=== PATIENT | female | born 1990 | race Caucasian/White ===

== ENCOUNTER 2022-07-04 12:53 | Emergency (ER) | payer OTHER, SELFPAY ==
[2022-07-04 12:54] VITALS: BP 157/105; PULSE 73; RESP 16; TEMP 36.6; O2SAT 100; BMI 29.2
[2022-07-04 12:57] VITALS: BP 155/98; PULSE 76; RESP 18; TEMP 36.6; O2SAT 98
[2022-07-04 13:57] VITALS: BP 153/94; PULSE 79; RESP 16; TEMP 36.6; O2SAT 97
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
[2022-07-04 14:57] VITALS: BP 150/89; PULSE 81; RESP 18; TEMP 36.7; O2SAT 99
[2022-07-04 15:00] VITALS: BP 154/84; PULSE 76; RESP 16; TEMP 36.6; O2SAT 97
[2022-07-04 15:10] LABS: Internal QC Validated? YES +Cl - CLEAR BKGD; Pregnancy, Urine Negative Negative
[2022-07-04 17:06] LABS: Chlamydia Trachomatis by PCR Negative (Negative); Neisserai gonorrhoeae by PCR Negative (Negative); Probe Check PASS; Sample Adequacy Control PASS; Specimen Processing Control PASS
== END 2022-07-04 15:42 | disposition home or self-care (01) ==
PROVIDERS: Emergency Provider Emergency Medicine; PCP Family Medicine; Visit Provider Emergency Medicine
DX: N93.0 Postcoital and contact bleeding (principal); R10.2 Pelvic and perineal pain
CPT/HCPCS: 76830; 81025; 87491; 87591; 99282

== ENCOUNTER 2023-08-17 19:11 | Emergency (ER) | payer OTHER, SELFPAY ==
[2023-08-17 19:12] VITALS: BP 150/90; PULSE 125; RESP 18; TEMP 36.6; O2SAT 100; BMI 65.4
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
[2023-08-17 21:11] VITALS: PULSE 100; RESP 18; O2SAT 97
--- OUTSIDE RECORDS SUMMARY | 2023-08-17 21:17 | XMS RPT_ITS | CCD ---
Author Name Unknown Address [address] [place] [address] [address] [place] [id number] Organization [facility] Care Team Providers Care Bedspread Seamer Name Role Phone NICHOLAS GARY Attending Unavailable NICHOLAS GARY Primary Care Unavailable GEORGE OLEARY DO Attending Unavailable GEORGE OLEARY DO Primary Care Unavailable Allergies Allergy Classification Reported Allergen(s) Allergy Type Date of Onset Reaction(s) Facility (1 source) Seasonal allergy; Translations: [SEASONAL ALLERGIES] Propensity to adverse reactions (disorder) 1 [facility] Repository Results Test Name Value Interpretation Reference Range Facil ity Encounters Encounter Date Encounter Type Care Provider Facility Start: 11-17-2022 End: 11-18-2022 ambulatory GEORGE OLEARY DO Facility:B Start: 11-04-2021 End: 11-04-2021 ambulatory NICHOLAS GARY Facility:[facility] Payers Date Payer Category Payer Unknown [id number] 1990 Unknown [id number] Progress note 11-04-2021 Note Date & Type Note Facility 11-04-2021 Note HNO ID: [id number] Author: Nicholas Gary MD Service: ? Author Type: Physician Type: Progress Notes Filed: 11/04/2021 3:26 PM Note Text: Chief Complaint Patient presents with: Weight Loss HPI:This Team Access Model visit is a virtual encounter. It required patient-provider interaction for the medical decision making as documented below. Patient was offered a virtual/telemedicine appointment in lieu of an office visit due to recommendations to reduce patient exposure to COVID-19. Patient is aware of limitations of performing the visit without a face to face visit in the office setting and agrees. Pt completing virtual visit today wanting to discuss restarting Adipex. Weight - Currently weighing 208 lbs and wanting to restart Adipex. Pt last given her final prescription of Adipex on 11/10/20 and advised to f/u in 1 month. Pt never followed up despite office reaching out to schedule. Pt final weight from November recorded was 187 lbs. Pt starting weight was 195 lbs. Has been trying to get back to eating healthy. 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 Past medical history, appointments, medications, allergies reviewed. Previous Medical History PAST MEDICAL HISTORY Diagnosis Date - Chlamydia 05/2010 Treated - Decorative tattoo Left upper arm, [facility], [place], right inner wrist - Dysthymic disorder Depression (non-psychotic) - Encounter for insertion of mirena IUD 05/02/2018 - Genital herpes 03/2014 HSV type 2 Positive - Kidney infection 1995 hospitalized - LGSIL (low grade squamous intraepithelial lesion) on Pap smear 08/14/2013 - Migraine, unspecified, with intractable migraine, so stated, without mention of status migrainosus Migraine - Seasonal allergies - Suicidal attempted 02/2010 overdose of extra strength tylenol went to ER - Unspecified asthma(493.90) Asthma Unspecified - Varicella without mention of complication 1994 Chickenpox Previous Surgical History PAST SURGICAL HISTORY Procedure Laterality Date - NONE Family History FAMILY HISTORY Problem Relation Age of Onset - Asthma Maternal Grandmother - Seizures Brother Patient Allergies ALLERGIES Allergen Reactions - Seasonal Allergies Other: See Comments Sinus problems Current Medications Current Outpatient Medications on File Prior to Visit Medication Sig - fluticasone (FLOVENT) 110 mcg/actuation inhaler Inhale 1 Puff as instructed twice daily. - minocycline (MINOCIN, DYNACIN) 50 mg capsule Take 1 capsule by mouth twice daily. - acyclovir (ZOVIRAX) 400 mg tablet Take 1 tablet by mouth twice daily. - sertraline (ZOLOFT) 100 mg tablet Take 1.5 tablets by mouth once daily. - cetirizine (ZYRTEC) 10 mg tablet Take 1 tablet by mouth once daily. - albuterol HFA (PROAIR HFA) 90 mcg/actuation inhaler Inhale 2 Puffs as instructed every 6 hours as needed. - levonorgestrel (MIRENA) 20 mcg/24 hours (5 yrs) 52 mg IUD 1 Each by INTRAUTERINE route one time only. No current facility-administered medications on file prior to visit. Social History Social History Tobacco Use - Smoking status: Never Smoker - Smokeless tobacco: Never Used Substance Use Topics - Alcohol use: Yes Comment: Occasionally - Drug use: No EXAM: LMP 05/12/2018 General Appearance: Well appearing, alert, in no acute distress, well-hydrated, well nourished.. Health Maintenance List COVID-19 VACCINE(1) Never done PNEUMOCOCCAL(1 - PCV) Never done SPIROMETRY Never done DTAP,TDAP,TD(1 - Tdap) Never done PAP TESTING due on 07/12/2021 ANNUAL PCP TEAM CHRONIC DISEASE VISIT due on 11/10/2021 INFLUENZA(Season Ended) due on 02/10/2022 HEPATITIS C SCREENING Completed HIV SCREENING Completed Data reviewed None ASSESSMENT/PLAN: 1. . Acne, unspecified acne type - ICD9: 706.1, ICD10: L70.9 - MINOCYCLINE 50 MG CAPSULE 2. Depression, unspecified depression type - ICD9: 311, ICD10: F32.A - SERTRALINE 100 MG TABLET 3. ADRIANO (generalized anxiety disorder) - ICD9: 300.02, ICD10: F41.1 - SERTRALINE 100 MG TABLET 4. Mild asthma, unspecified whether complicated, unspecified whether persistent - ICD9: 493.90, ICD10: J45.909 - CETIRIZINE 10 MG TABLET 5. Obesity, Class I, BMI 30-34.9 - ICD9: 278.00, ICD10: E66.9 - PHENTERMINE 37.5 MG TABLET Follow up in 1 month Nicholas Gary MD [facility] Summary Purpose Family History No Family History Records FoundNo Family History Records Found Advance Directives No Advanced Directives Records FoundNo Advanced Directives Records Found Additional Source Comments INFORMATION SOURCE (unrecogn ized section and content) DATE CREATED AUTHOR AUTHOR'S AMAYA JOHNSON 11/23/[address] [facility] [employer] ([place]) FOR RECORDS PERTAINING TO PATIENTS WHO ARE OR HAVE BEEN ENROLLED IN A CHEMICAL DEPENDENCY/SUBSTANCEABUSE PROGRAM, SOME INFORMATION MAY BE OMITTED. This clinical summary was aggregated from multiple sources. Caution should be exercised in using it in the provision of clinical care. This summary normalizes information from multiple sources, and as a consequence, information in this document may materially change the coding, format and clinical context of patient data. In addition, data may be omitted in some cases. CLINICAL DECISIONS SHOULD BE BASED ON THE PRIMARY CLINICAL RECORDS. [facility] [employer] [facility]. provides no warranty or guarantee of the accuracy or completeness of information in this document.
[2023-08-17 22:23] VITALS: BP 150/74; PULSE 94; RESP 16; TEMP 36.8; O2SAT 97
== END 2023-08-17 22:26 | disposition home or self-care (01) ==
PROVIDERS: Emergency Provider Emergency Medicine; Visit Provider Emergency Medicine
DX: T74.11XA Adult physical abuse, confirmed, initial encounter (principal); S06.9X0A Unspecified intracranial injury without loss of consciousness, initial encounter; S02.2XXA Fracture of nasal bones, initial encounter for closed fracture; Y04.8XXA Assault by other bodily force, initial encounter
CPT/HCPCS: 70450; 70486; 99284

== ENCOUNTER 2024-02-04 18:49 | Emergency (ER) | payer MEDICAID, SELFPAY ==
[2024-02-04 18:50] VITALS: BP 150/109; PULSE 113; RESP 18; TEMP 36.4; O2SAT 100; BMI 26.3
[2024-02-04] MEDS: LORazepam 1 MG Tablet PO (19:20)
--- NOTE | 2024-02-04 19:28 | ED.RN ---
pt. crying and refusing to answer questions, stating that I do not want to be in hospital. This RN completed the assessment as best as possible.
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
[2024-02-04 20:25] LABS: Absolute Lymphocyte Count 2.79 X10^3/uL (0.83-4.51); Absolute Neutrophil Count 5.1 X10^3/uL (2.0-7.7); Basophil# 0.11 X10^3/uL; Basophil% 1.2 % (0-1); Eosinophil# 0.17 X10^3/uL; Eosinophils% 1.9 % (0-5); Hematocrit 37.6 % (37-47); Hemoglobin 12.5 g/dL (12.0-15.0); Lymphocyte # 2.79 X10^3/ul (0.83-4.51); Lymphocyte % 31.5 % (19-41); Mean Corp Hgb Conc 33.2 g/dL (32-36); Mean Corpuscular Hgb 31.1 pg (27.0-32.0); Mean Corpuscular Volume 93.5 fL (81-99); Mean Platelet Vol. 9.3 fl (6.2-12.0); Monocyte# 0.67 X10^3/uL; Monocyte% 7.6 % (0-10); NRBC Flagged by Analyzer 0 % (0-5); Neutrophil # 5.08 X10^3/uL (2.7-7.7); Neutrophil % 57.5 % (47-70); Platelet Count 304 K/mm3 (150-450); RBC Distribution Width CV 12.8 % (11.6-14.6); RBC Distribution Width SD 43.9 fl (35.1-43.9); Red Blood Count 4.02 M/mm3 (4.2-5.4); White Blood Count 8.9 K/mm3 (4.4-11.0)
[2024-02-04 20:26] LABS: POSITIVE COUNT NO; POSITIVE DIFFERENTIAL NO; POSITIVE MORPHOLOGY NO
[2024-02-04 20:35] LABS: Internal QC Validated? YES +Cl - CLEAR BKGD; Pregnancy, Serum, hCG Quali. NEGATIVE Negative
[2024-02-04 20:36] LABS: Record Kit Lot#, Serum Preg. 772476
[2024-02-04 20:38] LABS: Alcohol, Blood (Medical)-Serum < 3.0 mg/dL
[2024-02-04 20:39] LABS: Anion Gap 8 (5-15); BUN 11 mg/dL (7-18); BUN/Creat Ratio 13.4 RATIO (10-20); Chloride 107 mmol/L (98-107); Creatinine, Serum 0.82 mg/dL (0.55-1.02); EST Glomerular Filtration Rate 86 mL/min (>60); Est Glom Filt Rate - Afr Amer 104 mL/min (>60); Estimated Creatinine Clearance 120.45 ml/min; Glucose 81 mg/dL (74-106); Potassium 3.7 mmol/L (3.5-5.1); Sodium Level 140 mmol/L (136-145)
[2024-02-04 20:50] VITALS: PULSE 85; RESP 18; O2SAT 100
[2024-02-04 21:21] LABS: Amphetamine Urine VISTA NEGATIVE (<1000 ng/mL); Barbiturate Urine VISTA NEGATIVE (< 200 ng/mL); Benzodiazepine Urine VISTA NEGATIVE (< 200 ng/mL); Cocaine Urine VISTA NEGATIVE (< 300 ng/mL); Ecstacy Urine VISTA NEGATIVE (< 500 ng/mL); Methadone Urine VISTA NEGATIVE (< 300 ng/mL); PCP Urine VISTA NEGATIVE (< 25 ng/mL); THC Urine VISTA NEGATIVE (< 50 ng/mL); Vista UDS pH Range 5
[2024-02-04 22:00] VITALS: BP 130/91; RESP 18
[2024-02-04 23:14] VITALS: BP 124/81; PULSE 85; RESP 18; TEMP 36.7; O2SAT 99
[2024-02-04] MEDS: oxyCODONE 5 MG Tablet PO (23:22)
== END 2024-02-04 23:24 | disposition home or self-care (01) ==
PROVIDERS: Physician Assistant; Emergency Provider Emergency Medicine; Visit Provider Emergency Medicine
DX: S91.201A Unspecified open wound of right great toe with damage to nail, initial encounter (principal); F32.9 Major depressive disorder, single episode, unspecified; F41.9 Anxiety disorder, unspecified; J45.909 Unspecified asthma, uncomplicated; Z79.899 Other long term (current) drug therapy; X58.XXXA Exposure to other specified factors, initial encounter; Z63.0 Problems in relationship with spouse or partner
CPT/HCPCS: 80048; 80307; 82077; 84703; 85025; 99285

== ENCOUNTER → 2024-09-20 | Outpatient (CLI) | payer MEDICAID, SELFPAY | END | disposition home or self-care (01) | LOC: LABSPEC 16:48 | PROVIDERS: Referring Provider Nurse Practitioner Family; Visit Provider Nurse Practitioner Family | DX: Z12.4 Encounter for screening for malignant neoplasm of cervix (principal); Z97.5 Presence of (intrauterine) contraceptive device ==

== ENCOUNTER 2024-12-25 00:09 | Emergency (ER) | payer MEDICAID, SELFPAY ==
[2024-12-25 00:10] VITALS: BP 108/95; PULSE 108; RESP 26; TEMP 37.2; O2SAT 100; BMI 27.2
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
[2024-12-25] MEDS: Ziprasidone IM 20 MG/ML VIAL IM (00:32)
--- OUTSIDE RECORDS SUMMARY | 2024-12-25 00:41 | XMS RPT_ITS | CCD ---
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 Name Role Phone GEORGE OLEARY DO Primary Care Physician GEORGE OLEARY DO Attending Unavailable GEORGE OLEARY DO Primary Care Unavailable George Oleary DO Primary Care Provider [phone] KEESHA DEVINE Attending Unavailable GEORGE OLEARY Primary Care Unavailable GEORGE OLEARY Primary Care Unavailable Kiko Anderson Referring Unavailable Kiko Anderson Attending Unavailable George Oleary Primary Care Unavailable Alden Casper Attending Unavailable George Oleary Primary Care Unavailable Allergies Allergy Classification Reported Allergen(s) Allergy Type Date of Onset Reaction(s) Facility (1 source) seasonal enviromental Allergy to substance Headache (finding), Vertigo (finding), Sneezing (finding), Itching (finding) [facility] (3 sources) Seasonal allergy; Translations: [SEASONAL ALLERGIES] Allergy to substance 1 Other: See Comments [facility] Work Phone: Medications Current Medications Medication Drug Class(es) Dates Sig (Normalized) Sig (Original) acyclovir 400 mg oral tablet (3 sources) Herpesvirus Nucleoside Analog DNA Polymerase Inhibitor, Herpes Simplex Virus Nucleoside Analog DNA Polymerase Inhibitor, Herpes Zoster Virus Nucleoside Analog DNA Polymerase Inhibitor Start: 11-04-2021 take 1 tablet by mouth twice daily acyclovir (ZOVIRAX) 400 mg tablet Take 1 tablet by mouth twice daily. 180 tablet 3 11/04/2021 Active [id number] 200 actuat albuterol 0.09 mg/actuat metered dose inhaler (3 sources) beta2-Adrenergic Agonist Start: 11-07-2024 take 2 puff(s) by inhalation every four hours as needed for wheezing albuterol HFA (PROVENTIL HFA, VENTOLIN HFA) 90 mcg/actuation inhaler Indications: Asthma with acute exacerbation, unspecified asthma severity, unspecified whether persistent (HCC) , Seasonal allergies Inhale 2 puffs as instructed every 4 hours as needed for wheezing/shortness of breath. 1 each 11/07/2024 Active Start: 03-23-2020 take 2 puff(s) by in halation every six hours as needed albuterol HFA (PROAIR HFA) 90 mcg/actuation inhaler Indications: Mild intermittent asthma, uncomplicated (HCC) Inhale 2 Puffs as instructed every 6 hours as needed. 6.7 g 5 03/23/2020 Active amoxicillin 875 mg oral tablet (1 source) Penicillin-class Antibacterial Start: 03-26-2024 End: 04-05-2024 take 1 tablet by mouth twice daily amoxicillin (AMOXIL) 875 mg tablet Indications: Pain, dental Take 1 tablet by mouth two times a day for 10 days. 20 tablet 03/26/2024 04/05/2024 Active ARIPiprazole 10 mg oral tablet (1 source) Atypical Antipsychotic Start: 08-28-2023 ARIPiprazole 10 mg oral tablet 0 Refill(s) Start Date: 08/28/23 Status: Ordered cetirizine hydrochloride 10 mg oral tablet (2 sources) Histamine-1 Receptor Antagonist Start: 11-04-2021 take 1 tablet by mouth once daily cetirizine (ZYRTEC) 10 mg tablet Indications: Mild asthma, unspecified whether complicated, unspecified whether persistent (HCC) Take 1 tablet by mouth once daily. 90 tablet 3 11/04/2021 Active levonorgestrel 0.035800 mg/hr intrauterine system (2 sources) Progestin, Progestin-containing Intrauterine Device levonorgestrel (MIRENA) 20 mcg/24 hours (5 yrs) 52 mg IUD 1 Each by INTRAUTERINE route one time only. Active minocycline 50 mg oral capsule (2 sources) Tetracycline-class Drug Start: 11-04-2021 take 1 capsule by mouth twice daily minocycline (MINOCIN, DYNACIN) 50 mg capsule Indications: Acne, unspecified acne type Take 1 capsule by mouth twice daily. 180 capsule 3 11/04/2021 Active naproxen 500 mg oral tablet (2 sources) Nonsteroidal Anti-inflammatory Drug Start: 03-26-2024 take 1 tablet by mouth twice daily as needed for pain naproxen (NAPROSYN) 500 mg tablet Indications: Pain, dental Take 1 tablet by mouth two times a day as needed (FOR PAIN - TAKE WITH FOOD.) for up to 20 doses. 20 tablet 03/26/2024 Active phentermine hydrochloride 37.5 mg oral capsule (1 source) Sympathomimetic Amine Anorectic Start: 08-28-2023 End: 09-27-2023 phentermine 37.5 mg oral capsule Dose : 37.5 mg = 1 cap(s), Oral, Daily, Month 1 of 3, break 11/28/23. [place] pay ok. BMI 29, X 30 day(s), # 30 cap(s), 0 Refill(s), 09/27/23 2:42:00 PM EDT, Pharmacy: [id number], Weight loss counseling, encounter for BMI 29.0-29.9,adult, 179.4, cm, 08/28/23 14:12:00 EDT, Height, 94.1, kg, 08/28/23 14:04:00 EDT, Dosing Weight Start Date: 08/28/23 Stop Date: 09/27/23 Status: Ordered predniSONE 20 mg oral tablet (1 source) Start: 11-07-2024 End: 11-11-2024 take 2 tablets by mouth once daily predniSONE (DELTASONE) 20 mg tablet Indications: Asthma with acute exacerbation, unspecified asthma severity, unspecified whether persistent (HCC) , Seasonal allergies Take 2 tablets by mouth once daily for 4 days. 8 tablet 11/07/2024 11/11/2024 Active QUEtiapine 50 mg oral tablet (2 sources) Atypical Antipsychotic Start: 03-14-2024 take 1-2 tablets by mouth once at bedtime as needed for sleep QUEtiapine (SEROQUEL) 50 mg tablet Take 1 to 2 tablets by mouth once a night at bedtime as needed for sleep 03/14/2024 Active sertraline 100 mg oral tablet (2 sources) Serotonin Reuptake Inhibitor Start: 11-04-2021 take 1.5 tablets by mouth once daily sertraline (ZOLOFT) 100 mg tablet Indications: Depression, unspecified depression type , ADRIANO (generalized anxiety disorder) Take 1.5 tablets by mouth once daily. 135 tablet 3 11/04/2021 Active traZODone hydrochloride 100 mg oral tablet (2 sources) Serotonin Reuptake Inhibitor Start: 09-27-2024 traZODone (DESYREL) 100 mg tablet TAKE 1 TABLET BY MOUTH AT BEDTIME. CAN TAKE 1-2 TABLETS 09/27/2024 Active Start: 08-28-2023 take 1 tablet by alan th once daily traZODone 50 mg oral tablet TAKE 1 TABLET BY MOUTH EVERY DAY Start Date: 08/28/23 Status: Ordered vortioxetine 20 mg oral tablet (3 sources) Start: 09-27-2024 take 1 tablet by mouth once daily TRINTELLIX 20 mg tablet Take 1 tablet by mouth once daily. 09/27/2024 Active Start: 02-29-2024 take 1 tablet by alan th once daily, then take 1 tablet by mouth once daily, then take 2 tablets by mouth once daily TRINTELLIX 5 mg tablet Take 1 Tablet By Oral Route Per daily take 1 tablet daily for first week, than 2 tablets daily 02/29/2024 Active Problems Active Problems Problem Classification Problem Date Documented Da te Episodic/Chronic Anxiety disorders (3 sources) Generalized anxiety disorder; Translations: [Generalized anxiety disorder] Onset: 04-16-2019 10-06-2022 Chronic Asthma (4 sources) Asthma; Translations: [Unspecified asthma, uncomplicated] Onset: 07-24-2012 07-24-2012 Chronic Disorders of teeth and jaw (1 source) Toothache; Translations: [Other specified disorders of teeth and supporting structures] 03-26-2024 Episodic Mood disorders (3 sources) Recurrent major depression; Translations: [Depressive disorder] Onset: 07-24-2012 10-06-2022 Chronic Other female genital disorders (1 source) Postcoital bleeding; Translations: [Postcoital and contact bleeding] 07-04-2022 Chronic Other screening for suspected conditions (not mental disorders or infectious disease) (1 source) Encounter for screening for malignant neoplasm of cervix; Translations: [Encounter for screening for malignant neoplasm of cervix] Onset: 11-08-2024 Episodic Other upper respiratory disease (1 source) Seasonal allergy; Translations: [Other seasonal allergic rhinitis] 11-07-2024 Chronic Other upper respiratory disease (1 source) Other seasonal allergic rhinitis; Translations: [Seasonal allergies] Onset: 05-29-2025 Chronic Suicide and intentional self-inflicted injury (1 source) H/O: attempted suicide 10-06-2022 Episodic Unclassified (1 source) Drug therapy finding 10-06-2022 Unclassified (1 source) Patient encounter status 10-06-2022 Past or Other Problems Problem Classification Problem Date Documented Date Episodic/Chronic Cancer of cervix (2 sources) Abnormal cytology findings; Translations: [Low grade squamous intraepithelial lesion on cytologic smear of cervix (LGSIL)] Onset: 08-14-2013 Resolved: 05-12-2015 05-12-2015 Episodic Headache; including migraine (2 sources) Headache; Translations: [Headache] Onset: 12-19-2015 12-19-2015 Episodic Inflammatory diseases of female pelvic organs (2 sources) Bacterial vaginosis; Translations: [Acute vaginitis] Onset: 03-06-2014 03-06-2014 Episodic Open wounds of extremities (1 source) Unspecified open wound of right great toe with damage to nail, initial encounter; Translations: [Unspecified open wound of right great toe with damage to nail, initial encounter] Onset: 03-01-2024 Episodic Sexually transmitted infections (not HIV or hepatitis) (2 sources) Human papillomavirus deoxyribonucleic acid test positive, high risk on cervical specimen; Translations: [Cervical high risk human papillomavirus (HPV) DNA test positive] Onset: 06-17-2010 06-17-2010 Episodic Viral infection (2 sources) Herpes simplex; Translations: [Herpesviral infection, unspecified] Onset: 05-12-2015 05-12-2015 Episodic Results Test Name Value Interpretation Reference Range Facility [facility] 11-07-2024 CNOV Office Visit ([facility]) KIKO MATHIS ([id number]) 1990 F Date Time Provider Department 11/07/24 11:00 AM [facility] During your visit today, we recorded the following information about you: Temperature Pulse Respiration Blood pressure 97.4 degrees 93/minute 20/minute 127/64 Weight 87.9 kg Keesha Devine APRN.STONE SANDBLASTER 11/07/2024 11:12 AM Signed [facility] Subjective Kiko Mathis is a 34 year old female. Patient presents with: Shortness of Breath: Cough x last night, asthma flare with seasonal allergies Shortness of Breath Dyspnea: - Onset yesterday. - Unable to use inhaler due to it being empty; last used a couple of days ago. - Denies chest pain. Seasonal Allergies: - Pruritus of skin and eyes since yesterday. - Stuffy and runny nose. - Denies sore throat. - Denies fever or chills. - Denies previous use of steroids. Review of Systems Respiratory: Positive for shortness of breath. Constitutional: (-) fever, (-) chills Eyes: (+) itchy eyes Ears/Nose/Mouth/Thro at: (+) runny nose, (+) congestion, (-) sore throat Cardiovascular: (-) chest pain Respiratory: (+) cough, (+) shortness of breath, (+) wheezing Skin: (+) pruritus Objective BP 127/64 Pulse 93 Temp 36.3 ?C (97.4 ?F) Resp 20 Wt 87.9 kg (193 lb 12.6 oz) LMP 05/12/2018 SpO2 100% BMI 28.21 kg/m? PAST MEDICAL HISTORY Diagnosis Date - Chlamydia 05/2010 Treated - Decorative tattoo Left upper arm, [place], [place], right inner wrist - Dysthymic disorder Depression (non-psychotic) - Encounter for insertion of Mirena IUD 05/02/2018 - Genital herpes 03/2014 HSV [...] Varicella without mention of complication 1994 Chickenpox PAST SURGICAL HISTORY Procedure Laterality Date - NONE ALLERGIES Seasonal Allergies MEDICATIONS - traZODone (DESYREL) 100 mg tablet TAKE 1 TABLET BY MOUTH AT BEDTIME. CAN TAKE 1-2 TABLETS - TRINTELLIX 20 mg tablet Take 1 tablet by mouth once daily. - QUEtiapine (SEROQUEL) 50 mg tablet Take 1 to 2 tablets by mouth once a night at bedtime as needed for sleep - acyclovir (ZOVIRAX) 400 mg tablet Take 1 tablet by mouth twice daily. - albuterol HFA (PROAIR HFA) 90 mcg/actuation inhaler Inhale 2 Puffs as instructed every 6 hours as needed. - levonorgestrel (MIRENA) 20 mcg/24 hours (5 yrs) 52 mg IUD 1 Each by INTRAUTERINE route one time only. - predniSONE (DELTASONE) 20 mg tablet Take 2 tablets by mouth once daily for 4 days. - albuterol HFA (PROVENTIL HFA, VENTOLIN HFA) 90 mcg/actuation inhaler Inhale 2 puffs as instructed every 4 hours as needed for wheezing/shortness of breath. - TRINTELLIX 5 mg tablet Take 1 Tablet By Oral Route Per daily take 1 tablet daily for first week, than 2 tablets daily (Patient not taking: Reported on 11/07/2024) - naproxen (NAPROSYN) 500 mg tablet Take 1 tablet by mouth two times a day as needed (FOR PAIN - TAKE WITH FOOD.) for up to 20 doses. (Patient not taking: Reported on 11/07/2024) - minocycline (MINOCIN, DYNACIN) 50 mg capsule Take 1 capsule by mouth twice daily. (Patient not taking: Reported on 11/07/2024) - sertraline (ZOLOFT) 100 mg tablet Take 1.5 tablets by mouth once daily. - cetirizine (ZYRTEC) 10 mg tablet Take 1 tablet by mouth once daily. (Patient not taking: Reported on 11/07/2024) FAMILY HISTORY Problem Relation Age of Onset - Asthma Maternal Grandmother - Seizures Brother Social History Tobacco Use - Smoking status: Never - Smokeless tobacco: Never Substance Use Topics - Alcohol use: Yes Comment: Occasionally - Drug use: No Physical Exam Vitals and nursing note reviewed. Constitutional: General: She is not in acute distress. Appearance: Normal appearance. She is not ill-appearing. HENT: Nose: Congestion present. Cardiovascular: Rate and Rhythm: Normal rate and regular rhythm. Heart sounds: Normal heart sounds. Pulmonary: Effort: Pulmonary effort is normal. No respiratory distress. Breath sounds: Examination of the right-upper field reveals wheezing. Examination of the left-upper field reveals wheezing. Wheezing present. No rales. Lymphadenopathy: Cervical: No cervical adenopathy. Skin: General: Skin is warm and dry. Findings: No erythema or rash. Neurological: Mental Status: She is alert. General: No acute distress. Resp: Mild wheezing. {1. Asthma with acute exacerbation, unspecified asthma severity, unspecified whether persistent (HCC) (J45.901) - Acute exace (more content not included)... Normal [facility] Misc.on 09-30-2024 [facility] Misc. 4 COMMENT Normal . [facility] Comment on above: Order Comment: CYTOL OGY INFORMATION: - CLINICAL INFORMATION: ANNUAL - Non - DATE LMP/MENOPAUSE: LMP LMP - COLLECTION VIAL: Thin Prep Vial - APPLICATIONS SALES CONSULTANT SOURCE: CERVICAL - COLLECTION TECHNIQUE: BRUSH ONLY ACOG AGE GDLN HPV STD'S (APT Result Comment: Test Ordered: IGP,Aptima HPV,CtNg Age Gdln Specimen Comment: [id number] Specimen Comment: Source.............Cervix Specimen Comment: No. of containers..01 ThinPrep Vial Age Gdln ACOG Testing 30-65 =G Reference Range: . DIAGNOSIS: Comment WB Reference Range: . NEGATIVE FOR INTRAEPITHELIAL LESION OR MALIGNANCY. THIS SPECIMEN WAS RESCREENED PART OF OUR MANUSCRIPT READER PROGRAM. Specimen adequacy: Comment WB Reference Range: . Satisfactory for evaluation. Endocervical and/or squamous metaplastic cells (endocervical component) are present. Performed by: Comment [facility] Reference Range: . Kimi Piper, Lead Person (ASCP) QC reviewed by: Comment WB Reference Range: . Maria Fernanda Magaña, Lead Person (ASCP) . WB Reference Range: . Note: Comment WB Reference Range: . The Pap smear is a screening test designed to aid in the detection of premalignant and malignant conditions of the uterine cervix. It is not a diagnostic procedure and should not be used as the sole means of detecting cervical cancer. Both false-positive and false-negative reports do occur. Test Methodology: Comment WB Reference Range: . This liquid based ThinPrep(R) pap test was screened with the use of an image guided system. HPV Aptima Negative =G Reference Range: Negative This nucleic acid amplification test detects fourteen high- risk HPV types (16,18,31,33,35,39,45,51,52,56,58,59,66,68) without differentiation. HPV Genotype Reflex Comment WB Reference Range: . Criteria not met, HPV Genotype not performed. Performed at: =G - [facility] [id number] Technical Supervisor: Marleni Min MD, Phone: [phone] Performed at: WB - [facility] [address] [id number] Technical Supervisor: Marleni Min MD, Phone: [phone] Performed at: [facility] - [facility] [address] [place] [id number] Technical Supervisor: Jacobo Jean MD, Phone: [phone] Performed By: #### L 3410.9998 #### [facility] [place], [address] CNOV 03-26-2024 [facility]OV [facility] DELKIKO Thomas ([id number]) 1990 Date Time Provider Department 03/26/24 1:30 PM ARELIS DANIEL [facility] During your visit today, we recorded the following information about you: Temperature Pulse Respiration Blood pressure 97.9 degrees 95/minute 18/minute 132/86 Weight 89.8 kg Arelis Daniel APRN.CNP 03/26/2024 1:43 PM Signed This note was created using NoteWriter. Subjective Kiko Mathis is a 33 year old female. HPI Pt was to have tooth number 16 pulled about 6 months ago but went to [facility] and missed her appointment. She will attempt to follow up with dentistry. Review of Systems Constitutional: Negative for fever. HENT: Positive for dental problem. Objective BP 132/86 Pulse 95 Temp 36.6 ?C (97.9 ?F) (Tympanic) Resp 18 Wt 89.8 kg (197 lb 15.6 oz) LMP 05/12/2018 SpO2 99% BMI 28.82 kg/m? Physical Exam Vitals and nursing note reviewed. Constitutional: General: She is not in acute distress. Appearance: Normal appearance. She is not ill-appearing. HENT: Head: Normocephalic. Mouth/Throat: Mouth: Mucous membranes are moist. Comments: No obvious abscess or dental caries noted Pulmonary: Effort: Pulmonary effort is normal. Musculoskeletal: General: Normal range of motion. Cervical back: Normal range of motion. Skin: General: Skin is warm and dry. Neurological: General: No focal deficit present. Mental Status: She is alert. Psychiatric: Mood and Affect: Mood normal. Behavior: Behavior normal. Assessment and Plan ASSESSMENT/PLAN: 1. Pain, dental - ICD9: 525.9, ICD10: K08.89 Patient given prescriptions as noted below. I did encourage her to follow-up with dentistry as soon as possible instructing her that we are only covering up symptoms here at the urgent care. Patient understands. - AMOXICILLIN 875 MG TABLET - NAPROXEN 500 MG TABLET Arelis Daniel APRN.CNP Allergies As of Date: 03/26/2024 Noted Allergy Reaction SEASONAL ALLERGIES 08/09/2010 14 - Other: See Comments Comments: Sinus problems Date Reviewed: 03/26/2024 Reviewed by: Arelis Daniel APRN.STONE SANDBLASTER - Fully Assessed Reason for Visit: Dental Problem [31] Cmt: Tooth pain x 1 day Primary Visit Diagnosis:Pain, dental [K08.89] Order(s):amoxicillin (AMOXIL) 875 mg tabletTake 1 tablet by mouth two times a day for 10 days.Disp: 20 tabletRfl: 0 naproxen (NAPROSYN) 500 mg tabletTake 1 tablet by mouth two times a day as needed (FOR PAIN - TAKE WITH FOOD.) for up to 20 doses.Disp: 20 tabletRfl: 0 Prescriptions as of 03/26/2024 - TRINTELLIX 5 mg tablet Take 1 Tablet By Oral Route Per daily take 1 tablet daily for first week, than 2 tablets daily - QUEtiapine (SEROQUEL) 50 mg tablet Take 1 to 2 tablets by mouth once a night at bedtime as needed for sleep - amoxicillin (AMOXIL) 875 mg tablet Take 1 tablet by mouth two times a day for 10 days. - naproxen (NAPROSYN) 500 mg tablet Take 1 tablet by mouth two times a day as needed (FOR PAIN - TAKE WITH FOOD.) for up to 20 doses. - minocycline (MINOCIN, DYNACIN) 50 mg capsule [...] Each by INTRAUTERINE route one time only. Meds Comments as of 07/25/2018: Currently on Mirena Problem List As Of Date 03/26/2024 Noted Resolved Cervical high risk HPV (human papillomavirus) t*06/17/2010 Asthma [J45.909] 07/24/2012 Depression [F32.A] 07/24/2012 LGSIL (low grade squamous intraepithelial lesio*08/14/2013 05/12/2015 Bacterial vaginosis [N76.0, B96.89] 03/06/2014 Herpes simplex virus (HSV) infection [B00.9] 05/12/2015 Headache [R51] 12/19/2015 ADRIANO (generalized anxiety disorder) [F41.1] 04/16/2019 Prescriptions ordered this encounter Disp Refills Start End AMOXICILLIN 875 MG TABLET 20 t* 0 03/26/2024 04/05/2024 Route: ORAL Sig: Take 1 tablet by mouth two times a day for 10 days. NAPROXEN 500 MG TABLET 20 t* 0 03/26/2024 Route: ORAL Sig: Take 1 tablet by mouth two times a day as needed (FOR PAIN - TAKE WITH FOOD.) for up to 20 doses. Letter Text Encounter Status:Closed by ARELIS DANIEL on 03/26/[address] [facility] Alcohol, Blood (Medical)-Ser umon 02-04-2024 SERUM ETOH < 3.0 Normal [facility] Comment on above: Result Comment: The serum:whole blood ethanol ratio is approximately 1.14 and varies slightly with hematocrit. Medical Alcohol reference interval and critical value in non-tolerant individuals; 50 - 100 Impairment 100 Intoxication 100 - 250 Severe Poisoning 250 - 400 Deep/possible fatal coma Performed By: #### L 505.5000, L700.6800, L100.0100, L501.9100, L500.2500 #### [facility] [address] [place], [address] Basic Metabolic Profile (BMP )on 02-04-2024 BUN/CRE 13.4 RATIO Normal 10-20 [facility] Comment on above: Performed By: #### L 505.5000, L700.6800, L100.0100, L501.9100, L500.2500 #### [facility] [address] [place], [address] CA,Total 9.0 mg/dL Normal 8.5-10.1 [facility] Comment on above: Performed By: #### L 505.5000, L700.6800, L100.0100, L501.9100, L500.2500 #### [facility] [address] [place], [address] Chloride [Moles/Vol] 107 mmol/L Normal 98-107 [facility] Comment on above: Performed By: #### L 505.5000, L700.6800, L100.0100, L501.9100, L500.2500 #### [facility] [address] [place], [address] CO2 [Moles/Vol] 25.0 mmol/L Normal 21.0-32.0 [facility] Comment on above: Performed By: #### L 505.5000, L700.6800, L100.0100, L501.9100, L500.2500 #### [facility] [address] [place], [address] Creatinine [Mass/Vol] 0.82 mg/dL Normal 0.55-1.02 [facility] Comment on above: Result Comment: The validity of the calculated GFR GFRAA in patients over 70 years has not been determined. Clinical correlation is essential. Performed By: #### L 505.5000, L700.6800, L100.0100, L501.9100, L500.2500 #### [facility] [address] [place], [address] ECRCL 120.45 ml/min Normal [facility] Comment on above: Performed By: #### L 505.5000, L700.6800, L100.0100, L501.9100, L500.2500 #### [facility] [address] [place], [address] EST GFR - AA 104 mL/min Normal >60 [facility] Comment on above: Result Comment: Afri can Australian GFR Calc Performed By: #### L 505.5000, L700.6800, L100.0100, L501.9100, L500.2500 #### [facility] [address] [place], [address] GAP 8 Normal 5-15 [facility] Comment on above: Performed By: #### L 505.5000, L700.6800, L100.0100, L501.9100, L500.2500 #### [facility] [address] [place], [address] GFR/1.73 sq M.predicted among non-blacks MDRD (S/P/Bld) [Vol rate/Area] 86 mL/min/{1.73_m2} Normal >60 [facility] Comment on above: Result Comment: Non- GFR Calc Performed By: #### L 505.5000, L700.6800, L100.0100, L501.9100, L500.2500 #### [facility] [address] [place], [address] Glucose [Mass/Vol] 81 mg/dL Normal 74-106 [facility] Comment on above: Performed By: #### L 505.5000, L700.6800, L100.0100, L501.9100, L500.2500 #### [facility] [address] [place], [address] Potassium [Moles/Vol] 3.7 mmol/L Normal 3.5-5.1 [facility] Comment on above: Performed By: #### L 505.5000, L700.6800, L100.0100, L501.9100, L500.2500 #### [facility] [address] [place], [address] Sodium [Moles/Vol] 140 mmol/L Normal 136-145 [facility] Comment on above: Performed By: #### L 505.5000, L700.6800, L100.0100, L501.9100, L500.2500 #### [facility] [address] [place], [address] Urea nitrogen [Mass/Vol] 11 mg/dL Normal 7-18 [facility] Comment on above: Performed By: #### L 505.5000, L700.6800, L100.0100, L501.9100, L500.2500 #### [facility] [address] [place], [address] CBC W/Diff, Automatedon 08-2 Absolute Lymph 2.79 X10 3/uL Normal 0.83-4.51 [facility] Comment on above: Performed By: #### L 505.5000, L700.6800, L100.0100, L501.9100, L500.2500 #### [facility] [address] [place], [address] Absolute Neut 5.1 X10 3/uL Normal 2.0-7.7 [facility] Comment on above: Performed By: #### L 505.5000, L700.6800, L100.0100, L501.9100, L500.2500 #### [facility] [address] [place], [address] Basophils/100 WBC (Bld) 1.2 % High 0-1 [facility] Comment on above: Performed By: #### L 505.5000, L700.6800, L100.0100, L501.9100, L500.2500 #### [facility] [address] [place], [address] Eosinophils/100 WBC (Bld) 1.9 % Normal 0-5 [facility] Comment on above: Performed By: #### L 505.5000, L700.6800, L100.0100, L501.9100, L500.2500 #### [facility] [address] [place], [address] Erythrocyte distribution width (RBC) [Ratio] 12.8 % Normal 11.6-14.6 [facility] Comment on above: Performed By: #### L 505.5000, L700.6800, L100.0100, L501.9100, L500.2500 #### [facility] [address] [place], [address] Hematocrit (Bld) [Volume fraction] 37.6 % Normal 37-47 [facility] Comment on above: Performed By: #### L 505.5000, L700.6800, L100.0100, L501.9100, L500.2500 #### [facility] [address] [place], [address] Hemoglobin (Bld) [Mass/Vol] 12.5 g/dL Normal 12.0-15.0 [facility] Comment on above: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 Vitals and nursing note reviewed. Constitutional: General: She is not in acute distress. Appearance: Normal appearance. She is not ill-appearing. HENT: Nose: Congestion present. Cardiovascular: Rate and Rhythm: Normal rate and regular rhythm. Heart sounds: Normal heart sounds. Pulmonary: Effort: Pulmonary effort is normal. No respiratory distress. Breath sounds: Examination of the right-upper field reveals wheezing. Examination of the left-upper field reveals wheezing. Wheezing present. No rales. Lymphadenopathy: Cervical: No cervical adenopathy. Skin: General: Skin is warm and dry. Findings: No erythema or rash. Neurological: Mental Status: She is alert. General: No acute distress. Resp: Mild wheezing. {1. Asthma with acute exacerbation, unspecified asthma severity, unspecified whether persistent ([facility]) (J45.901) - Acute exacerbation with dyspnea and wheezing; no chest pain. - Oxygen saturation at 100%. - Prescribed albuterol inhaler for PRN use. - Initiated short course of oral corticosteroids: 2 pills daily for 4 days to reduce inflammation and improve respiratory function. - Provided work excuse note. 2. (more content not included)... [facility] 11-07-2024 History of Presen t illness Narrative [facility] Subjective Kiko Mathis is a 34 year old female. Patient presents with: Shortness of Breath: Cough x last night, asthma flare with seasonal allergies Shortness of Breath Dyspnea: - Onset yesterday. - Unable to use inhaler due to it being empty; last used a couple of days ago. - Denies chest pain. Seasonal Allergies: - Pruritus of skin and eyes since yesterday. - Stuffy and runny nose. - Denies sore throat. - Denies fever or chills. - Denies previous use of steroids. Review of Systems Respiratory: Positive for shortness of breath. Constitutional: (-) fever, (-) chills Eyes: (+) itchy eyes Ears/Nose/Mouth/Throat: (+) runny nose, (+) congestion, (-) sore throat Cardiovascular: (-) chest pain Respiratory: (+) cough, (+) shortness of breath, (+) wheezing Skin: (+) pruritus Objective BP 127/64 Pulse 93 Temp 36.3 C (97.4 F) Resp 20 Wt 87.9 kg (193 lb 12.6 oz) LMP 05/12/2018 SpO2 100% BMI 28.21 kg/m PAST MEDICAL HISTORY Diagnosis Date Chlamydia 05/2010 Treated Decorative tattoo Left upper arm, [place], [place], right inner wrist Dysthymic disorder Depression (non-psychotic) Encounter for insertion of Mirena IUD 05/02/2018 Genital herpes 03/2014 HSV type 2 Positive Kidney infection 1995 hospitalized [facility] (low grade squamous intraepithelial lesion) on Pap smear 08/14/2013 Migraine, unspecified, with intractable migraine, so stated, without mention of status migrainosus Migraine Seasonal allergies Suicidal attempted 02/2010 overdose of extra strength tylenol went to ER Unspecified asthma(493.90) Asthma Unspecified Varicella without mention of complication 1994 Chickenpox PAST SURGICAL HISTORY Procedure Laterality Date NONE ALLERGIES Seasonal Allergies MEDICATIONS traZODone (DESYREL) 100 mg tablet TAKE 1 TABLET BY MOUTH AT BEDTIME. CAN TAKE 1-2 TABLETS TRINTELLIX 20 mg tablet Take 1 tablet by mouth once daily. QUEtiapine (SEROQUEL) 50 mg tablet Take 1 to 2 tablets by mouth once a night at bedtime as needed for sleep acyclovir (ZOVIRAX) 400 mg tablet Take 1 tablet by mouth twice daily. albuterol HFA (PROAIR HFA) 90 mcg/actuation inhaler Inhale 2 Puffs as instructed every 6 hours as needed. levonorgestrel (MIRENA) 20 mcg/24 hours (5 yrs) 52 mg IUD 1 Each by INTRAUTERINE route one time only. predniSONE (DELTASONE) 20 mg tablet Take 2 tablets by mouth once daily for 4 days. albuterol HFA (PROVENTIL HFA, VENTOLIN HFA) 90 mcg/actuation inhaler Inhale 2 puffs as instructed every 4 hours as needed for wheezing/shortness of breath. TRINTELLIX 5 mg tablet Take 1 Tablet By Oral Route Per daily take 1 tablet daily for first week, than 2 tablets daily (Patient not taking: Reported on 11/07/2024) naproxen (NAPROSYN) 500 mg tablet Take 1 tablet by mouth two times a day as needed (FOR PAIN - TAKE WITH FOOD.) for up to 20 doses. (Patient not taking: Reported on 11/07/2024) minocycline (MINOCIN, DYNACIN) 50 mg capsule Take 1 capsule by mouth twice daily. (Patient not taking: Reported on 11/07/2024) sertraline (ZOLOFT) 100 mg tablet Take 1.5 tablets by mouth once daily. cetirizine (ZYRTEC) 10 mg tablet Take 1 tablet by mouth once daily. (Patient not taking: Reported on 11/07/2024) FAMILY HISTORY Problem Relation Age of Onset Asthma Maternal Grandmother Seizures Brother Social History Tobacco Use Smoking status: Never Smokeless tobacco: Never Substance Use Topics Alcohol use: Yes Comment: Occasionally Drug use: No Physical Exam Vitals and nursing note reviewed. Constitutional: General: She is not in acute distress. Appearance: Normal appearance. She is not ill-appearing. HENT: Nose: Congestion present. Cardiovascular: Rate and Rhythm: Normal rate and regular rhythm. Heart sounds: Normal heart sounds. Pulmonary: Effort: Pulmonary effort is normal. No respiratory distress. Breath sounds: Examination of the right-upper field reveals wheezing. Examination of the left-upper field reveals wheezing. Wheezing present. No rales. Lymphadenopathy: Cervical: No cervical adenopathy. Skin: General: Skin is warm and dry. Findings: No erythema or rash. Neurological: Mental Status: She is alert. General: No acute distress. Resp: Mild wheezing. {1. Asthma with acute exacerbation, unspecified asthma severity, unspecified whether persistent (HCC) (J45.901) - Acute exacerbation with dyspnea and wheezing; no chest pain. - Oxygen saturation at 100%. - Prescribed albuterol inhaler for PRN use. - Initiated short course of oral corticosteroids: 2 pills daily for 4 days to reduce inflammation and improve respiratory function. - Provided work excuse note. 2. Seasonal allergies (J30.2) - Symptoms include pruritus and rhinorrhea. - Corticosteroid therapy will also address allergic symptoms. - Recommend zyrtec or claritin for allergy symptoms. - Follow-up with your PCP in 3-5 days if symptoms have not improved or sooner if symptoms worsen - Discussed red flags and need for immediate medical evaluation if any occur. - Discussed supportive care treatment with fluids, rest and analgesia. - Discussed expected course of illness Keesha Devine APRN.STONE SANDBLASTER and Recording using [employer] software for draft documentation of the visit was discussed with the patient/authorized healthcare representative; all questions welcomed and answered. Patient/authorized healthcare representative agreed to proceed Disposition The patient was discharged. OTC Medications were advised: Procedures documented in this encounter [facility] 03-26-2024 History of Presen t illness Narrative This note was created using NoteWriter. Subjective Kiko Mathis is a 33 year old female. HPI Pt was to have tooth number 16 pulled about 6 months ago but went to [facility] and missed her appointment. She will attempt to follow up with dentistry. Review of Systems Constitutional: Negative for fever. HENT: Positive for dental problem. Objective BP 132/86 Pulse 95 Temp 36.6 C (97.9 F) (Tympanic) Resp 18 Wt 89.8 kg (197 lb 15.6 oz) LMP 05/12/2018 SpO2 99% BMI 28.82 kg/m Physical Exam Vitals and nursing note reviewed. Constitutional: General: She is not in acute distress. Appearance: Normal appearance. She is not ill-appearing. HENT: Head: Normocephalic. Mouth/Throat: Mouth: Mucous membranes are moist. Comments: No obvious abscess or dental caries noted Pulmonary: Effort: Pulmonary effort is normal. Musculoskeletal: General: Normal range of motion. Cervical back: Normal range of motion. Skin: General: Skin is warm and dry. Neurological: General: No focal deficit present. Mental Status: She is alert. Psychiatric: Mood and Affect: Mood normal. Behavior: Behavior normal. Assessment and Plan ASSESSMENT/PLAN: 1. Pain, dental - ICD9: 525.9, ICD10: K08.89 Patient given prescriptions as noted below. I did encourage her to follow-up with dentistry as soon as possible instructing her that we are only covering up symptoms here at the urgent care. Patient understands. - AMOXICILLIN 875 MG TABLET - NAPROXEN 500 MG TABLET Arelis Daniel APRN.[employer]ONE SANDB[employer]ER documented in this encounter [facility] 03-26-2024 Note HNO ID: [id number] Author: ARELIS DANIEL APRN.STONE SANDBLASTER Service: ? Author Type: Nurse Practitioner Type: Progress Notes Filed: 03/26/2024 13:43 Note Text: This note was created using NoteWriter. Subjective Kiko Mathis is a 33 year old female. HPI Pt was to have tooth number 16 pulled about 6 months ago but went [facility] and missed her appointment. She will attempt to follow up with dentistry. Review of Systems Constitutional: Negative for fever. HENT: Positive for dental problem. Objective BP 132/86 Pulse 95 Temp 36.6 ?C (97.9 ?F) (Tympanic) Resp 18 Wt 89.8 kg (197 lb 15.6 oz) LMP 05/12/2018 SpO2 99% BMI 28.82 kg/m? Physical Exam Vitals and nursing note reviewed. Constitutional: General: She is not in acute distress. Appearance: Normal appearance. She is not ill-appearing. HENT: Head: Normocephalic. Mouth/Throat: Mouth: Mucous membranes are moist. Comments: No obvious abscess or dental caries noted Pulmonary: Effort: Pulmonary effort is normal. Musculoskeletal: General: Normal range of motion. Cervical back: Normal range of motion. Skin: General: Skin is warm and dry. Neurological: General: No focal deficit present. Mental Status: She is alert. Psychiatric: Mood and Affect: Mood normal. Behavior: Behavior normal. Assessment and Plan ASSESSMENT/PLAN: 1. Pain, dental - ICD9: 525.9, ICD10: K08.89 Patient given prescriptions as noted below. I did encourage her to follow-up with dentistry as soon as possible instructing her that we are only covering up symptoms here at the urgent care. Patient understands. - AMOXICILLIN 875 MG TABLET - NAPROXEN 500 MG TABLET Arelis Daniel APRN.STONE SANDBLASTER [facility] 08-28-2023 Note ORIGINAL EXAMINATION: THREE XRAY VIEWS OF THE RIGHT FOOT 08/28/2023 3:13 pm COMPARISON: None. HISTORY: ORDERING SYSTEM PROVIDED HISTORY: Reason for Exam: right foot pain, unable to walk on it after new shoes, no trauma. Pain at distal 2, 3,4 toe MTP joints FINDINGS: No acute fracture or dislocation. Normal osseous mineralization. No visible destructive osseous lesion. No periosteal reaction or osseous erosion. Included joint spaces are maintained. Normal midfoot alignment. No tibiotalar effusion. Incidental multipartite lateral hallux sesamoid. Incidental tiny os perineum. No radiopaque foreign body. IMPRESSION: 1. No acute osseous abnormality. No significant arthrosis. Interpreted by: Rosas Pryor DO Preliminary Report By: Rosas Pryor DO Electronically signed By Rosas Pryor DO Dictated Date: 08/28/2023 3:51:24 PM Prelim Date: 08/28/2023 3:54:44 PM Sign Date: 08/28/2023 3:54:44 PM Ordering Provider: [facility] 07-04-2022 Discharge summary Note Date/Time July 04, 2022 2:56pm [facility] Medical Records Department [address] [place] [address] Emergency Department Summary 07/04/22 MR#: [id number] Acct: [id number] Name: KIKO MATHIS Rep #:[id number] : 1990 32 From: Tomer Leavitt MD PCP: Dr. Alexis Gaytan MD Status:RE G ER Location: ED HPI HPI - Female History of Present Illness Chief Complaint: Female C/O Informant: patient Pain Pain: Positive for Pelvic Pain Onset: Days (2) Context: Onset with activity (intercourse) Timing: Continuous Quality: Positive for Cramping Location: Suprapubic Current Severity: Moderate Maximum Severity: Moderate Worsened by: [place] Relieved by: - (nothing in particular) Bleeding Issue: Positive for Vaginal bleeding Onset: Days (2) Context: Onset with activity (intercourse) Timing: Intermittent Current Severity: Spotting Maximum Severity: Mild Associated Symptoms Associated Symptoms: Negative for Dysuria, Frequency or Urgency Narrative Narrative: Patient states she was having consensual intercourse 2 days ago, in which they used an empty beer bottle in her vagina as well. She states she had some bleeding and pain shortly afterwards, she then had intercourse with the same person again yesterday but it was regular without using any foreign bodies. Shestates it was painful but not remarkably so, however she continues to have cramping and she was concerned maybe she had a worse injury. She states she is having no more vaginal bleeding today. She has a history of having Mirena placed. PFSH PFSH Medical History no medical history no medical history Allergy/AdvReac Type Severity Reaction Status Date / Time No Known Allergies Allergy Verified 07/04/22 12:57 Surgical History no surgical history Social History Smoking Status: Never smoker ROS ROS ED Constitutional Constitutional ED: Denies chills or fever(s) Eyes Eyes: Denies change in vision or diplopia ENT ENT ED: Denies rhinorrhea or sore throat Cardiovascular Cardiovascular: Denies chest pain or palpitations Respiratory/Chest Respiratory/Chest: Denies cough or dyspnea Gastrointestinal Gastrointestinal: Reports abdominal pain; Denies diarrhea, nausea or vomiting Genitourinary Genitourinary ED: Denies dysuria or hematuria Musculoskeletal Musculoskeletal: Denies back pain or neck pain Integumentary Denies abscess or rash Neurologic Neurologic: Denies headache(s), paresthesias or weakness Psychiatric Psychiatric: Denies anxiety or suicidal thoughts EXAM Physical Exam Const Vital Signs: 07/04/22 12:54 07/04/22 12:57 Temperature 98 F 97.9 F Temperature Source Temporal Temporal Pulse Rate 73 76 Respiratory Rate 16 18 Blood Pressure 157/105 H 155/98 H Blood Pressure Mean 122 117 Pulse Ox 100 98 Oxygen Delivery Method Room Air Room Air Positive well nourished and well developed General Appearance ED: well developed and NAD HEENT Reports moist mucous membranes normocephalic and atraumatic Eyes PERRL and EOMs intact bilaterally Neck full ROM and supple Resp normal respiratory effort and clear to auscultation bilaterally Cardio regular rate, regular rhythm and no murmurs GI non-tender and non-distended Auscultation: normoactive bowel sounds Palpation: soft Narrative: Externally, there is no signs of trauma and there is no abnormality or tenderness. On speculum exam, there is a scant amount of bloody mucus present at the cervical os without active bleeding. The cervix is otherwise normal and nontender. Using the speculum, I viewed throughout all of the fornices and I see no lacerations or other etiology of blood/bleeding. The vaginal orozco appear to be benign. No IUD or string visible. Back/Spine no CVA tenderness General Back: other FROM Extremity normal to inspection General Extremety ED: Negative for edema, pulses abnormal or tenderness General Extremity: Negative for edema or pulses abnormal Neuro oriented x3, CN's II-XII intact bilaterally and no sensory deficits noted Sensorium / Orientation: awake and alert Motor Exam: strength 5/5 throughout Psych mental status grossly normal Skin no rashes or lesions noted and no wounds MDM MDM MDM Narrative Medical decision making narrative: I discussed my exam findings with the on-call thermodynamicist for the patient's gynecology group, Vaishnavi Reeves. Given my exam findings she recommended an ultrasound as well as testing for GC and chlamydia, so we sent the urine for that. Did do a which is negative. Ultrasound is obtained, shows no acute traumatic abnormalities and the IUD is seen within the endometrium. My interpretation of the US agrees with that of the radiologist. Patient is doing well, she will be offered Toradol or Naprosyn prior to discharge, close a patient follow-up advised. Lab Data Attestation: I reviewed the patient's lab results. Labs: Laboratory Results - last 24 hr 07/04/22 14:55 Urine Test Negative Radiography Diagnostic Testing: Clinical Impression(s) from Imaging Studies Transvaginal US 07/04/22 14:35 IMPRESSION: The IUD is seen within the endometrium. Electronically Signed: Prieto Doss MD at 15:20 EST , Discharge Plan Triage Chief Complaint: Female C/O ED Provider: Tomer Leavitt Dx/Rx/DC Orders Clinical Impression: Bleeding after intercourse Instructions: ED Dysfunctional Uterine Bleeding Primary Care Provider: Alexis Gaytan Referrals: Vaishnavi Reeves CNM [Med Staff - Adv Practice Prof] - 1-2 Days if not improving Alexis Gaytan MD [Primary Care Provider] - Disposition Disposition: Home, Self Care What to do if you have Problems For any increased pain, shortness of breath, bleeding, nausea or vomiting, chestpain, or any unexpected problems, contact your Primary Care Provider. Call [facility] ([phone]) or report to the closest Emergency Room. Call 911 if necessary. 07/04/22 1534 <Electronically signed by Tomer Leavitt MD> Cosigner Signature (if applicable): CC: PILAR Reeves; Dr. Alexis Gaytan MD ~ Signed [facility] Work Phone: Evaluation + Plan note Future Appointments Appointment Date:09/25/2023 01:30:00 PM Scheduled Provider:GEORGE OLEARY DO Location[facility] Appointment Type:PC [facility] Evaluation noteNo assessment information available [facility] Work Phone: Evaluation note* Diagnosis Pain, dental- Primary Unspecified disorder of the teeth and supporting structures [facility] Seasonal allergies- Primary Allergic rhinitis, cause unspecified Asthma with acute exacerbation, unspecified asthma severity, unspecified whether persistent (HCC) [facility] N[facility] No data available for this section [facility] Hospital Discharge instructions No data available for this section [facility] Progress note No data available for this section [facility] Chief Complaint and Reason for Visit Chief Complaint FEMALE PAIN Advance Directives No Advanced Directives Records Found Advance Directive Response Recorded Date/ Time Living Will No July 04 1:16pm Power of Director Staffing No July 04, 2022 1:16pm Summary Purpose Family History No Family History Records Found Additional Source Comments Care Teams (unrecognized sec tion and content) Team Status: Active Member Role Status Dates Dr. Alexis Gaytan MD Family Provider Active Dr. Alexis Gaytan MD Primary Care Provider Active Team Status: Inactive Member Role Status Dates Dr. Alexis Gaytan MD Primary Care Provider Active Dr. 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 DATE CREATED AUTHOR AUTHOR'S ORGANIZ ATION 11/10/2024 [facility] Source Comments (unrecognize d section and content) In the event this informatio n is protected by the Federal Confidentiality of Alcohol and Drug Abuse Patient Records regulations: The Federal rules restrict any use of the information to criminally investigate or prosecute any alcohol or drug abuse patient.[facility] the event this information is protected by the Federal Confidentiality of Alcohol and Drug Abuse Patient Records regulations: The Federal rules restrict any use of the information to criminally investigate or prosecute any alcohol or drug abuse patient.[facility] Reason for Visit (unrecogniz ed section and content) Reason Comments Dental Problem Tooth pain x 1 day Reason Comments Shortness of Breath Cough x last night, asthma flare with seasonal allergies FOR RECORDS PERTAINING TO PATIENTS WHO ARE [...] BE BASED ON THE PRIMARY CLINICAL RECORDS. [facility] [employer] [facility]. provides no warranty or guarantee of the accuracy or completeness of information in this document.
--- OUTSIDE RECORDS SUMMARY | 2024-12-25 00:41 | XMS RPT_ITS | CCD ---
Author Organization [facility] Care Team Providers Care Public Finance Specialist Name Role Phone GEORGE OLEARY DO Primary Care Physician GEORGE OLEARY DO Attending Unavailable GEORGE OLEARY DO Primary Care Unavailable George Oleary DO Primary Care Provider [phone] KEESHA DEVINE Attending Unavailable GEORGE OLEARY Primary Care Unavailable GEORGE OLEARY Primary Care Unavailable Kiko Anderson Referring Unavailable Kiko Anderson Attending Unavailable George Oleary Primary Care Unavailable Alden Casper Attending Unavailable George Oleary Primary Care Unavailable Allergies Allergy Classification Reported Allergen(s) Allergy Type Date of Onset Reaction(s) Facility (1 source) seasonal enviromental Allergy to substance Headache (finding), Vertigo (finding), Sneezing (finding), Itching (finding) [facility] (3 sources) Seasonal allergy; Translations: [SEASONAL ALLERGIES] Allergy to substance 1 Other: See Comments [facility] Work Phone: Medications Current Medications Medication [...] twice daily. 180 tablet 3 11/04/2021 Active [id number] 200 actuat albuterol 0.09 mg/actuat metered dose [...] daily. 90 tablet 3 11/04/2021 Active levonorgestrel 0.729389 mg/hr intrauterine system (2 sources) Progestin, Progestin-containing [...] 0 Refill(s), 09/27/23 2:42:00 PM EDT, Pharmacy: [id number], Weight loss counseling, encounter for BMI [...] Name Value Interpretation Reference Range Facility [facility] 11-07-2024 CNOV Office Visit ([facility]) KIKO MATHIS ([id number]) 1990 F Date Time Provider Department 11/07/24 11:00 AM [facility] DEVINE [facility] During your visit today, we recorded the following information about you: Temperature Pulse Respiration Blood pressure 97.4 degrees 93/minute 20/minute 127/64 Weight 87.9 kg Keesha Devine APRN.GREEN MARKETING SPECIALIST 11/07/2024 11:12 AM Signed [facility] [...] Treated - Decorative tattoo Left upper arm, [place], [place], right inner wrist - Dysthymic disorder [...] Acute exace (more content not included)... Normal [facility] Misc.on 09-30-2024 [facility]isc[facility] 4 COMMENT Normal . 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 of containers..01 ThinPrep Vial Age Gdln ACOG Testing 30-65 =G Reference Range: . DIAGNOSIS: Comment WB Reference Range: . NEGATIVE FOR INTRAEPITHELIAL LESION OR MALIGNANCY. THIS SPECIMEN WAS RESCREENED PART OF OUR SCHOOL RESOURCE OFFICER PROGRAM. Specimen adequacy: Comment WB Reference Range: . Satisfactory for evaluation. Endocervical and/or squamous metaplastic cells (endocervical component) are present. Performed by: Comment [facility] Reference Range: . Kimi Piper, Stem Maker (ASCP) QC reviewed by: Comment WB Reference Range: . Maria Fernanda Magaña, Stem Maker (ASCP) . WB Reference Range: . Note: [...] Genotype not performed. Performed at: =G - [facility] [id number] Freight Agent: Marleni Min MD, Phone: [phone] Performed at: WB - [facility] [address] [id number] Freight Agent: Marleni Min MD, Phone: [phone] Performed at: [facility] [address] [place] [id number] Freight Agent: Jacobo Jean MD, Phone: [phone] Performed By: #### L 3410.9998 #### [facility] [place], [address] CNOV 03-26-2024 CNOV [facility] DELKIKO Thomas ([id number]) 1990 Date Time Provider Department 03/26/24 1:30 PM ARELIS DANIEL [facility] During your visit today, we recorded the following information about you: Temperature Pulse Respiration Blood pressure 97.9 degrees 95/minute 18/minute 132/86 Weight 89.8 kg Arelis Daniel APRN.CNP 03/26/2024 1:43 PM Signed This note was created using NoteWriter. Subjective Kiko Mathis is a 33 year old female. HPI Pt was to have tooth number 16 pulled about 6 months ago but went to senior living and missed her appointment. She will attempt [...] Date Reviewed: 03/26/2024 Reviewed by: Arelis Daniel APRN.GREEN MARKETING SPECIALIST - Fully Assessed Reason for Visit: Dental [...] Status:Closed by ARELIS DANIEL on 03/26/24 Normal [facility] Alcohol, Blood (Medical)-Ser umon 02-04-2024 SERUM ETOH < 3.0 Normal [facility] Comment on above: Result Comment: The serum:whole blood ethanol ratio is approximately 1.14 and varies slightly with hematocrit. Medical Alcohol reference interval and critical value in non-tolerant individuals; 50 - 100 Impairment 100 Intoxication 100 - 250 Severe Poisoning 250 - 400 Deep/possible fatal coma Performed By: #### L 505.5000, L700.6800, L100.0100, L501.9100, L500.2500 #### [facility] [address] [place], [address] Basic Metabolic Profile (BMP )on 02-04-2024 BUN/CRE 13.4 RATIO Normal 10-20 [facility] Comment on above: Performed By: #### L 505.5000, L700.6800, L100.0100, L501.9100, L500.2500 #### [facility] [address] [place], [address] CA,Total 9.0 mg/dL Normal 8.5-10.1 [facility] Comment on above: Performed By: #### L 505.5000, L700.6800, L100.0100, L501.9100, L500.2500 #### [facility] [address] [place], [address] Chloride [Moles/Vol] 107 mmol/L Normal 98-107 [facility] Comment on above: Performed By: #### L 505.5000, L700.6800, L100.0100, L501.9100, L500.2500 #### [facility] [address] [place], [address] CO2 [Moles/Vol] 25.0 mmol/L Normal 21.0-32.0 [facility] Comment on above: Performed By: #### L 505.5000, L700.6800, L100.0100, L501.9100, L500.2500 #### [facility] [address] [place], [address] Creatinine [Mass/Vol] 0.82 mg/dL Normal 0.55-1.02 [facility] Comment on above: Result Comment: The validity of the calculated GFR GFRAA in patients over 70 years has not been determined. Clinical correlation is essential. Performed By: #### L 505.5000, L700.6800, L100.0100, L501.9100, L500.2500 #### [facility] [address] [place], [address] ECRCL 120.45 ml/min Normal [facility] Comment on above: Performed By: #### L 505.5000, L700.6800, L100.0100, L501.9100, L500.2500 #### [facility] [address] [place], [address] EST GFR - AA 104 mL/min Normal >60 [facility] Comment on above: Result Comment: Afri can Venezuelan GFR Calc Performed By: #### L 505.5000, L700.6800, L100.0100, L501.9100, L500.2500 #### [facility] [address] [place], [address] GAP 8 Normal 5-15 [facility] Comment on above: Performed By: #### L 505.5000, L700.6800, L100.0100, L501.9100, L500.2500 #### [facility] [address] [place], [address] GFR/1.73 sq M.predicted among non-blacks MDRD (S/P/Bld) [Vol rate/Area] 86 mL/min/{1.73_m2} Normal >60 [facility] Comment on above: Result Comment: Non- GFR Calc Performed By: #### L 505.5000, L700.6800, L100.0100, L501.9100, L500.2500 #### [facility] [address] [place], [address] Glucose [Mass/Vol] 81 mg/dL Normal 74-106 [facility] Comment on above: Performed By: #### L 505.5000, L700.6800, L100.0100, L501.9100, L500.2500 #### [facility] [address] [place], [address] Potassium [Moles/Vol] 3.7 mmol/L Normal 3.5-5.1 [facility] Comment on above: Performed By: #### L 505.5000, L700.6800, L100.0100, L501.9100, L500.2500 #### [facility] [address] [place], [address] Sodium [Moles/Vol] 140 mmol/L Normal 136-145 [facility] Comment on above: Performed By: #### L 505.5000, L700.6800, L100.0100, L501.9100, L500.2500 #### [facility] [address] [place], [address] Urea nitrogen [Mass/Vol] 11 mg/dL Normal 7-18 [facility] Comment on above: Performed By: #### L 505.5000, L700.6800, L100.0100, L501.9100, L500.2500 #### [facility] [address] [place], [address] CBC W/Diff, Automatedon 08-2 Absolute Lymph 2.79 X10 3/uL Normal 0.83-4.51 [facility] Comment on above: Performed By: #### L 505.5000, L700.6800, L100.0100, L501.9100, L500.2500 #### [facility] [address] [place], [address] Absolute Neut 5.1 X10 3/uL Normal 2.0-7.7 [facility] Comment on above: Performed By: #### L 505.5000, L700.6800, L100.0100, L501.9100, L500.2500 #### [facility] [address] [place], [address] Basophils/100 WBC (Bld) 1.2 % High 0-1 [facility] Comment on above: Performed By: #### L 505.5000, L700.6800, L100.0100, L501.9100, L500.2500 #### [facility] [address] [place], [address] Eosinophils/100 WBC (Bld) 1.9 % Normal 0-5 [facility] Comment on above: Performed By: #### L 505.5000, L700.6800, L100.0100, L501.9100, L500.2500 #### [facility] [address] [place], [address] Erythrocyte distribution width (RBC) [Ratio] 12.8 % Normal 11.6-14.6 [facility] Comment on above: Performed By: #### L 505.5000, L700.6800, L100.0100, L501.9100, L500.2500 #### [facility] [address] [place], [address] Hematocrit (Bld) [Volume fraction] 37.6 % Normal 37-47 [facility] Comment on above: Performed By: #### L 505.5000, L700.6800, L100.0100, L501.9100, L500.2500 #### [facility] [address] [place], [address] Hemoglobin (Bld) [Mass/Vol] 12.5 g/dL Normal 12.0-15.0 [facility] Comment on above: Performed By: #### L 505.5000, L700.6800, L100.0100, L501.9100, L500.2500 #### [facility] [address] [place], [address] IG% 0.300 Normal 0.0-0.9 [facility] Comment on above: Result Comment: IG% - Immature Granulocytes (promyelocytes, myelocytes and metamyelocytes) > 1% indicates that a LEFT SHIFT is Present. Performed By: #### L 505.5000, L700.6800, L100.0100, L501.9100, L500.2500 #### [facility] [address] [place], [address] Lymphocytes/100 WBC (Bld) 31.5 % Normal 19-41 [facility] Comment on above: Performed By: #### L 505.5000, L700.6800, L100.0100, L501.9100, L500.2500 #### [facility] [address] [place], [address] MCH (RBC) [Entitic mass] 31.1 pg Normal 27.0-32.0 [facility] Comment on above: Performed By: #### L 505.5000, L700.6800, L100.0100, L501.9100, L500.2500 #### [facility] [address] [place], [address] MCHC (RBC) [Mass/Vol] 33.2 g/dL Normal 32-36 [facility] Comment on above: Performed By: #### L 505.5000, L700.6800, L100.0100, L501.9100, L500.2500 #### [facility] [address] [place], [address] MCV (RBC) [Entitic vol] 93.5 fL Normal 81-99 [facility] Comment on above: Performed By: #### L 505.5000, L700.6800, L100.0100, L501.9100, L500.2500 #### [facility] [address] [place], [address] Monocytes/100 WBC (Bld) 7.6 % Normal 0-10 [facility] Comment on above: Performed By: #### L 505.5000, L700.6800, L100.0100, L501.9100, L500.2500 #### [facility] [address] [place], [address] Neutrophils/100 WBC (Bld) 57.5 % Normal 47-70 [facility] Comment on above: Performed By: #### L 505.5000, L700.6800, L100.0100, L501.9100, L500.2500 #### [facility] [address] [place], [address] Nucleated RBC (Bld) [#/Vol] 0 10*3/uL Normal 0-5 [facility] Comment on above: Performed By: #### L 505.5000, L700.6800, L100.0100, L501.9100, L500.2500 #### [facility] [address] [place], [address] Platelet mean volume (Bld) [Entitic vol] 9.3 fL Normal 6.2-12.0 [facility] Comment on above: Performed By: #### L 505.5000, L700.6800, L100.0100, L501.9100, L500.2500 #### [facility] [address] [place], [address] Platelets (Bld) [#/Vol] 304 10*3/uL Normal 150-450 [facility] Comment on above: Performed By: #### L 505.5000, L700.6800, L100.0100, L501.9100, L500.2500 #### [facility] [address] [place], [address] RBC (Bld) [#/Vol] 4.02 10*6/uL Low 4.2-5.4 [facility] Comment on above: Performed By: #### L 505.5000, L700.6800, L100.0100, L501.9100, L500.2500 #### [facility] [address] [place], [place], [address] RDW SD 43.9 fl Normal 35.1-43.9 [facility] Comment on above: Performed By: #### L 505.5000, L700.6800, L100.0100, L501.9100, L500.2500 #### [facility] [address] [place], [place], [id number] [phone] WBC (Bld) [#/Vol] 8.9 10*3/uL Normal 4.4-11.0 [facility] Comment on above: Performed By: #### L 505.5000, L700.6800, L100.0100, L501.9100, L500.2500 #### [facility] [address] [place], [place], [address] Emergency Department Summary on 02-04-2024 Emergency Department Summary [facility] Medical Records Department [address] [place] [address] Emergency Department Summary 02/04/24 MR#: [id number] Acct: [id number] Name: KIKO MATHIS Rep #: [id number] : 1990 33 From: Alden Casper DO [...] crisis evaluation (more content not included)... Normal [facility] ,Serum,hCG Quali.on 02-04-2024 HCG, SERUM QUAL Negative Normal [facility] Comment on above: Performed By: #### L 505.5000, L700.6800, L100.0100, L501.9100, L500.2500 #### [facility] [place], [address] Urine Drug Screen (VISTA)on 02-04-2024 AMPHETAMINES Negative Normal <1000 ng/mL [facility] Comment on above: Performed By: #### L 505.5000, L700.6800, L100.0100, L501.9100, L500.2500 #### [facility] [address] [place], [address] BARBITIURATES Negative Normal < 200 ng/mL [facility] Comment on above: Performed By: #### L 505.5000, L700.6800, L100.0100, L501.9100, L500.2500 #### [facility] [address] [place] [address] BENZODIAZIPINE Negative Normal < 200 ng/mL [facility] Comment on above: Performed By: #### L 505.5000, L700.6800, L100.0100, L501.9100, L500.2500 #### [facility] [address] [place], [place], [facility] COCAINE Negative Normal < 300 ng/mL [facility] Comment on above: Performed By: #### L 505.5000, L700.6800, L100.0100, L501.9100, L500.2500 #### [facility] [place], [place], [facility] ECSTACY Negative Normal < 500 ng/mL [facility] Comment on above: Performed By: #### L 505.5000, L700.6800, L100.0100, L501.9100, L500.2500 #### [facility] [place] [address] METHADONE Negative Normal < 300 ng/mL [facility] Comment on above: Performed By: #### L 505.5000, L700.6800, L100.0100, L501.9100, L500.2500 #### [facility] [address] [place] [address] OPIATES Negative Normal < 300 ng/mL [facility] Comment on above: Performed By: #### L 505.5000, L700.6800, L100.0100, L501.9100, L500.2500 #### [facility] [address] [place], [address] PCP Negative Normal < 25 ng/mL [facility] Comment on above: Performed By: #### L 505.5000, L700.6800, L100.0100, L501.9100, L500.2500 #### [facility] [address] [place], [address] THC Negative Normal < 50 ng/mL [facility] Comment on above: Performed By: #### L 505.5000, L700.6800, L100.0100, L501.9100, L500.2500 #### [facility] [address] [place], [address] VISTA UDS PH 5 Normal [facility] Comment on above: Performed By: #### L 505.5000, L700.6800, L100.0100, L501.9100, L500.2500 #### [facility] [address] [place], [address] XR FOOT MINIMUM 3 VIEWS RIGH Ton [...] 3:54:44 PM Ordering Provider: GEORGE OLEARY [facility] - Chemistry and C hemistry - challengeOrdered By: Dr. Leavitt on 07-04-2022 HCG ( test) Ql (U) Negative [facility] Comment on above: Very dilute urine sp ecimens, as indicated by a low specificgravity, may not contain call center support representative levels of hCG. If is still suspected, a first morning urinespecimen should be collected 48 hours later and tested. Vital Signs Date Time Vital Sign Value Performing Clinician Facility 11-07-2024 11:00-0400 Body mass index (BMI) [Ratio] 28.21 kg/m2 Keesha Devine APRN.GREEN MARKETING SPECIALIST Work Phone: [facility] 11-07-2024 11:00-0400 Body temperature 97.39 [degF] Keesha Devine APRN.GREEN MARKETING SPECIALIST Work Phone: [facility] 11-07-2024 11:00-0400 Body weight 87.9 kg Keesha Devine APRN.GREEN MARKETING SPECIALIST Work Phone: [facility] 11-07-2024 11:00-0400 Diastolic blood pressure 64 mm[Hg] Keesha Devine APRN.GREEN MARKETING SPECIALIST Work Phone: [facility] 11-07-2024 11:00-0400 Heart rate 93 /min Keesha Devine APRN.GREEN MARKETING SPECIALIST Work Phone: [facility] 11-07-2024 11:00-0400 Respiratory rate 20 /min Keesha Devine APRN.GREEN MARKETING SPECIALIST Work Phone: [facility] 11-07-2024 11:00-0400 SaO2% (BldA) [Mass fraction] 100 % Keesha Devine APRN.GREEN MARKETING SPECIALIST Work Phone: [facility] 11-07-2024 11:00-0400 Systolic blood pressure 127 mm[Hg] Keesha Devine STONE BANKER.GREEN MARKETING SPECIALIST Work Phone: [facility] 03-26-2024 13:32-0400 Body mass index (BMI) [Ratio] 28.82 kg/m2 Arelis Moomaw STONE BANKER.GREEN MARKETING SPECIALIST Work Phone: [facility] 03-26-2024 13:32-0400 Body temperature 97.9 [degF] Arelsi Moomaw STONE BANKER.GREEN MARKETING SPECIALIST Work Phone: [facility] 03-26-2024 13:32-0400 Body weight 89.8 kg Arelis Moomaw STONE BANKER.GREEN MARKETING SPECIALIST Work Phone: [facility] 03-26-2024 13:32-0400 Diastolic blood pressure 86 mm[Hg] Arelis Moomaw STONE BANKER.GREEN MARKETING SPECIALIST Work Phone: [facility] 03-26-2024 13:32-0400 Heart rate 95 /min Arelis Moomaw STONE BANKER.GREEN MARKETING SPECIALIST Work Phone: [facility] 03-26-2024 13:32-0400 Respiratory rate 18 /min Arelis Moomaw STONE BANKER.GREEN MARKETING SPECIALIST Work Phone: [facility] 03-26-2024 13:32-0400 SaO2% (BldA) [Mass fraction] 99 % Arelis Moomaw STONE BANKER.GREEN MARKETING SPECIALIST Work Phone: [facility] 03-26-2024 13:32-0400 Systolic blood pressure 132 mm[Hg] Aerlis Moomaw STONE BANKER.GREEN MARKETING SPECIALIST Work Phone: [facility] 07-04-2022 12:57-0500 Body temperature 97.9 [degF] [facility] 07-04-2022 12:57-0500 Diastolic blood pressure 98 mm[Hg] [facility] 07-04-2022 12:57-0500 Heart rate 76 /min [facility] 07-04-2022 12:57-0500 Respiratory rate 18 /min [facility] 07-04-2022 12:57-0500 SaO2% (BldA) [Mass fraction] 98 % [facility] 07-04-2022 12:57-0500 Systolic blood pressure 155 mm[Hg] [facility] 07-04-2022 12:54-0500 Body height 180.34 cm [facility] 07-04-2022 12:54-0500 Body mass index (BMI) [Ratio] 29.2 kg/m2 [facility] 07-04-2022 12:54-0500 Body weight 95.25 kg [facility] Encounters Encounter Date Encounter Type Care Provider Facility Start: 11-07-2024 End: 11-07-2024 Patient encounter procedure Keesha Devine STONE BANKER.GREEN MARKETING SPECIALIST Work Phone: [facility] Comment on above: Seasonal allergies ( Primary Dx); Asthma with acute exacerbation, unspecified asthma severity, unspecified whether persistent (HCC) Start: 11-07-2024 End: 11-07-2024 ambulatory KEESHA DEVINE Facility:[facility] Start: 09-20-2024 End: 09-20-2024 ambulatory Kiko Anderson Facility:[facility] Start: 03-26-2024 End: 03-26-2024 ambulatory GEORGE OLEARY Facility:[facility] Start: 03-26-2024 End: 03-26-2024 Patient encounter procedure Arelis Daniel STONE BANKER.GREEN MARKETING SPECIALIST Work Phone: [facility] Comment on above: Pain, dental (Primar y Dx) Start: 02-04-2024 End: 02-04-2024 Emergency department patient visit Alden Casper Facility:[facility] Start: 08-28-2023 End: 08-28-2023 ambulatory GEORGE OLEARY DO Facility: Start: 08-28-2023 End: 08-28-2023 Patient encounter procedure GEORGE OLEARY DO [facility] Start: 07-04-2022 End: 07-04-2022 Emergency department patient visit [facility] Procedures Date Procedure Procedure Detail Performing Clinician Start: 07-04-2022 Transvaginal echography Plan of Treatment Date Care Activity Detail Author Start: 09-10-2027 Screening for malignant neoplasm of cervix Cervical Cancer Screening [facility] Start: 02-10-2025 Influenza vaccination Influenza Vaccine (Season Ended) [facility] Start: 02-11-2024 Covid-19 Vaccine ( season) Covid-19 Vaccine ( season) [facility] Start: 02-11-2024 Influenza vaccination Influenza Vaccine (#1) [facility] Start: 11-04-2022 Annual PCP Team Chronic Disease Visit Annual PCP Team Chronic Disease Visit [facility] Start: 07-04-2022 [facility] Start: 2011 Hepatitis B Vaccine (1 of 3 - 19+ 3-dose series) Hepatitis B Vaccine (1 of 3 - 19+ 3-dose series) [facility] Start: 2011 Urine microalbumin profile DTaP,Tdap,Td Vaccine (1 - Tdap) [facility] Start: 2010 Spirometry Spirometry [facility] Chlamydia trachomati s DNA assay [facility] Neisseria gonorrhoea e DNA [Presence] in Cervical mucus by DINORA with probe detection [facility] Patient Education ED Dysfunction al Uterine Bleeding [facility] Work Phone: Patient referral [facility] Work Phone: Immunizations Immunization Date Immunization Notes Care Provider Reymundo camarillo 07-17-2017 influenza virus vacc ine, unspecified formulation Arelis Moomaw STONE BANKER.GREEN MARKETING SPECIALIST Work Phone: [facility] Payers Date Payer Category Payer Self-pay [id number] 2023 Medicaid [employer] Member Luu bscriber Plan / Payer (Effective 2023-Present) Name: Kiko Mathis Relation to Subscriber: Self Name: Kiko Mathis Payer ID: [id number] (NAIC) Type: Medicaid Address: [address] [place] [address] [id number] 2023 Private Health Insurance [employer] MEDICAID [facility] [id number] 2023-Present [address] [place] [address] Medicaid [id number] 2023 Unknown [id number] 2023 Unknown [id number] 1990 Unknown [id number] Unknown [id number] Unknown [id number] Unknown [id number] Social History Date Type Detail Facility Start: [facility]04[facility] Start: 1990 Sex Assigned At Female [facility] Start: 10-06-2022 End: 03-26-2024 Tobacco smoking status Never smoked tobacco (finding) [facility] Sex Assigned At Sex [facility] Start: 03-26-2024 Tobacco use and exposure Smokeless tobacco non-user [facility] Start: 03-26-2024 End: 11-07-2024 Alcoholic beverage intake Current drinker of alcohol (finding) [facility] Start: 10-13-2020 End: 07-04-2022 History of Social function [facility] Start: 10-13-2020 End: 07-04-2022 Social connection and isolation panel [facility] Do you belong to any clubs or organizations such as adventist groups, unions, fraternal or athletic groups, or school groups? No [facility] Are you now , , , , never or living with a partner? [facility] How often to you hav e a drink containing alcohol? 2-4 times a month [facility] How many standard drinks containing alcohol do you have on a typical day? 3 or 4 [facility] How often do you hav e 6 or more drinks on 1 occasion? Monthly [facility] How hard is it for y ou to pay for the very basics like food, housing, medical care, and heating Not hard at all [facility] Do you feel stress - tense, restless, nervous, or anxious, or unable to sleep at night because your mind is troubled all the time - these days [OSQ] Rather much [facility] (I/We) worried wheth er (my/our) food would run out before (I/we) got money to buy more. Never true [facility] Start: 10-13-2020 Education 12 [facility] Start: 08-08-2013 Alcohol Comment [facility]asionally [facility] Start: 11-02-2021 Gender identity Identifies as female gender (finding) [facility] Start: 11-02-2021 Sexual orientation Heterosexual (nigel keller) [facility] NEGATED: Highlighted row [facility] Functional Status Date Assessment Result Facility 12-10-2014 Are you deaf, or do you have serious difficulty hearing No 12/10/2014 4:49 PM NICOLET Yvonne Stark LPN No [facility] 12-10-2014 Are you blind, or do you have serious difficulty seeing, even when wearing glasses No 12/10/2014 4:49 PM NICOLET Yvonne Stark LPN No [facility] 12-10-2014 Do you have serious difficulty walking or climbing stairs No 12/10/2014 4:49 PM NICOLET Yvonne Stark LPN No [facility] 12-10-2014 Do you have difficul ty dressing or bathing No 12/10/2014 4:49 PM Yvonne Eldridge LPN No [facility] 12-10-2014 Because of a physica l, mental, or emotional condition, do you have difficulty doing errands alone such as visiting a physician's office or shopping No 12/10/2014 4:49 PM NICOLET Yvonne Stark LPN No [facility] Mental Status Date Assessment Result Facility 12-10-2014 Because of a physica l, mental, or emotional condition, do you have serious difficulty concentrating, remembering, or making decisions No 12/10/2014 4:49 PM Yvonne Eldridge LPN No [facility] Clinical Notes 07-04-2022 to 11-07-2024 Patient [...] employer as needed. documented in this encounter [facility] 11-07-2024 Note HNO ID: [id number] Author: KEESHA DEVINE APRN.GENOVEVA Service: ? Author [...] Treated - Decorative tattoo Left upper arm, [place], [place], right inner wrist - Dysthymic disorder [...] exacerbation, unspecified asthma severity, unspecified whether persistent ([facility]) (J45.901) - Acute exacerbation with dyspnea and wheezing; no chest pain. - Oxygen saturation at 100%. - Prescribed albuterol inhaler for PRN use. - Initiated short course of oral corticosteroids: 2 pills daily for 4 days to reduce inflammation and improve respiratory function. - Provided work excuse note. 2. (more content not included)... [facility] 11-07-2024 History of Presen t illness [...] 05/2010 Treated Decorative tattoo Left upper arm, [place], [place], right inner wrist Dysthymic disorder Depression [...] Discussed expected course of illness Keesha Devine APRN.GREEN MARKETING SPECIALIST and Recording using Dep-Xplora software for draft documentation of the visit was discussed with the patient/authorized call center support representative; all questions welcomed and answered. Patient/authorized call center support representative agreed to proceed Disposition The patient was discharged. OTC Medications were advised: Procedures documented in this encounter [facility] 03-26-2024 History of Presen t illness Narrative This note was created using NoteWriter. Subjective Kiko Mathis is a 33 year old female. HPI Pt was to have tooth number 16 pulled about 6 months ago but went to senior living and missed her appointment. She will attempt [...] - NAPROXEN 500 MG TABLET Arelis Daniel APRN.GREEN MARKETING SPECIALIST documented in this encounter [facility] 03-26-2024 Note HNO ID: [id number] Author: ARELIS DANIEL APRN.GREEN MARKETING SPECIALIST Service: ? Author Type: Nurse Practitioner Type: Progress Notes Filed: 03/26/2024 13:43 Note Text: This note was created using NoteWriter. Subjective Kiko Mathis is a 33 year old female. HPI Pt was to have tooth number 16 pulled about 6 months ago but went to senior living and missed her appointment. She will attempt [...] - NAPROXEN 500 MG TABLET Arelis Daniel APRN.GREEN MARKETING SPECIALIST [facility] 08-28-2023 Note ORIGINAL EXAMINATION: THREE XRAY [...] Sign Date: 08/28/2023 3:54:44 PM Ordering Provider: [facility] 07-04-2022 Discharge summary Note Date/Time July 04, 2022 2:56pm [facility] Medical Records Department [address] [place] [address] Emergency Department Summary 07/04/22 MR#: [id number] Acct: [id number] Name: KIKO MATHIS Rep #:[id number] : 1990 32 From: Tomer Leavitt MD PCP: Dr. Alexis Gaytan MD Status:RE G ER Location: ED HPI HPI - Female History of Present Illness Chief Complaint: Female C/O Informant: patient Pain Pain: Positive for Pelvic Pain Onset: Days (2) Context: Onset with activity (intercourse) Timing: Continuous Quality: Positive for Cramping Location: Suprapubic Current Severity: Moderate Maximum Severity: Moderate Worsened by: [place] Relieved by: - (nothing in particular) Bleeding [...] discussed my exam findings with the on-call billet bed operator for the patient's gynecology group, Vaishnavi Reeves. [...] your Primary Care Provider. Call [facility] ([phone]) or report to the closest Emergency Room. Call 911 if necessary. 07/04/22 1534 <Electronically signed by Tomer Leavitt MD> Cosigner Signature (if applicable): CC: PILAR Reeves; Dr. Alexis Gaytan MD ~ Signed [facility] Work Phone: Evaluation + Plan note Future Appointments Appointment Date:09/25/2023 01:30:00 PM Scheduled Provider:GEORGE OLEARY DO Location:[facility] Appointment Type:PC OV [facility] Evaluation noteNo assessment information available [facility] Work Phone: Evaluation note* Diagnosis Pain, dental- Primary Unspecified disorder of the teeth and supporting structures [facility] Seasonal allergies- Primary Allergic rhinitis, cause unspecified Asthma with acute exacerbation, unspecified asthma severity, unspecified whether persistent (HCC) [facility] N[facility]ative No data available for this section [facility] Discharge instructions No data available for this section [facility] Progress note No data available for this section [facility] Chief Complaint and Reason for Visit Chief Complaint FEMALE PAIN Advance Directives No Advanced Directives Records Found Advance Directive Response Recorded Date/ Time Living Will No July 04 1:16pm Power of Night Time Babysitter No July 04, 2022 1:16pm Summary Purpose [...] Dr. Tomer Leavitt MD Emergency Provider Active Public Finance Specialist Relationship Specialty Start Date End Date George Oleary DO [address] [place] [address] PCP - General Family Medicine 03/26/24 Public Finance Specialist Relationship Specialty Start Date End Date George Oleary DO [address] [place] [address] PCP - General Family Medicine 03/26/24 Goals (unrecognized section and content) Goals may be documented in a n alternate section No data available for this section INFORMATION SOURCE (unrecogn ized section and content) DATE CREATED AUTHOR 11/25/2023 [facility] ([place]) DATE CREATED AUTHOR AUTHOR'S ORGANIZ ATION 11/09/2024 [facility] DATE CREATED AUTHOR AUTHOR'S ORGANIZ ATION 11/10/2024 [facility] Source Comments (unrecognize d section and content) In the event this informatio n is protected by the Federal Confidentiality of Alcohol and Drug Abuse Patient Records regulations: The Federal rules restrict any use of the information to criminally investigate or prosecute any alcohol or drug abuse patient.[facility] the event this information is protected by the Federal Confidentiality of Alcohol and Drug Abuse Patient Records regulations: The Federal rules restrict any use of the information to criminally investigate or prosecute any alcohol or drug abuse patient.[facility] Reason for Visit (unrecogniz ed section [...] BE BASED ON THE PRIMARY CLINICAL RECORDS. [facility] [employer] [facility]. provides no warranty or guarantee of the accuracy or completeness of information in this document.
--- NOTE | 2024-12-25 01:08 | ED.RN ---
Pt brought in by EMS with PD crying and breathing fast. Pt refusing to sit still for vital signs. thrashing arms back and forth. Pt states she will not corporate with staff until she sees her mom. Explained to patient that mom is not here and vital signs are needed for proper assessment. stated that she had beer in her car and she was scared when PD had pulled her over since she is on probation. Pt agrees to let RNs obtain vital signs. Pt refusing to sit still for Dr. Dietrich, flirting with DO. You're really cute there is no way you're going to be my doctor Instructed to let Dr. Dietrich assess pt so that proper imaging/ tests could be ordered since pt had multiple small, superficial cuts on L thigh and calf. Pt refusing to sit still or answer anymore questions. Becoming increasingly more uncooperative and argumentative. Informed of potential pink slip for SI statements, pt only requesting to see mom. mom is not in department at this time. IM Greg and Tamiko ordered in order to properly assess and care for pt. Pt yelling, stating that she doesn't want to be in department and wishes to leave. I'm not going to fucking [facility] bro. Teodon given. PD agree with MD to take pt to [facility]. pt crying, not wanting to go to [facility]. Escorted out of department by PD.
--- NOTE | 2024-12-25 01:08 | ED.RN ---
Pt brought in by EMS with PD crying and breathing fast. Pt refusing to sit still for vital signs. thrashing arms back and forth. Pt states she will not corporate with staff until she sees her mom. Explained to patient that mom is not here and vital signs are needed for proper assessment. stated that she had beer in her car and she was scared when PD had pulled her over since she is on probation. Pt agrees to let RNs obtain vital signs. Pt refusing to sit still for Dr. Dietrich, flirting with DO. You're really cute there is no way you're going to be my doctor Instructed to let Dr. Dietrich assess pt so that proper imaging/ tests could be ordered since pt had multiple small, superficial cuts on L thigh and calf. Pt refusing to sit still or answer anymore questions. Becoming increasingly more uncooperative and argumentative. Informed of potential pink slip for SI statements, pt only requesting to see mom. mom is not in department at this time. IM Greg and Tamiko ordered in order to properly assess and care for pt. Pt yelling, stating that she doesn't want to be in department and wishes to leave. I'm not going to [facility] bro. Teodon given. PD agree with MD to take pt to [facility]. pt crying, not wanting to go to [facility]. Escorted out of department by PD.
== END 2024-12-25 00:39 ==
LOC: ED 00:38
PROVIDERS: Emergency Provider Emergency Medicine; Visit Provider Emergency Medicine
DX: S70.312A Abrasion, left thigh, initial encounter (principal); J45.909 Unspecified asthma, uncomplicated; R45.1 Restlessness and agitation; V43.52XA Car driver injured in collision with other type car in traffic accident, initial encounter
CPT/HCPCS: 96372; 99284; J3486

== ENCOUNTER → 2025-03-25 | Outpatient (CLI) | payer MEDICAID, SELFPAY | END | disposition home or self-care (01) | LOC: LABSPEC 10:40 | PROVIDERS: PCP Nurse Practitioner Family; Visit Provider Nurse Practitioner Family | DX: N30.90 Cystitis, unspecified without hematuria (principal) | CPT/HCPCS: 87077; 87086; 87088; 87186 ==